=== PATIENT | male | born 1935 | race Caucasian/White ===

== ENCOUNTER 2016-07-28 19:58 | Inpatient (IN) | payer OTHER, MEDICARE ==
[~2016-07-28] VITALS: Ht 180.3 cm; Wt 68.0 kg
[~2016-07-28 19:58] MED LIST: ASPIRIN EC325 M2 PO; ATENOLOL25 MG PO; LEADER MELATONIN5 MG PO; LIPITOR20 M2 PO; MULTIVITAMIN1 TAB PO; NITROSTAT0.4 MG SL; PLETAL50 MG PO; PREDNISONE5 M1 PO; PREDNISONE5 MG PO; PROTONIX 40MG T40 MG PO; SEROQUEL 25MG25 MG PO; SEROQUEL50 M1 PO; SPECTAZOLE0.1 %/15 G TOP; STERAPRED DS10 MG PO; SYNTHROID0.088 MG PO; ZOLOFT 100 MG100 MG PO
--- NOTE | 2016-07-28 20:13 | NUR ---
81 YEAR OLD BIBA FROM ECF C/O N/V/D X1 DAY. PT DENIES CP, SOB AT THIS TIME. REPORTS GENERAL MALAISE, NAUSEA AND DIARRHEA.
--- NOTE | 2016-07-28 20:17 | ED GI/GU/ABDOMINAL COMPLAINT ---
History of Present Illness General Chief Complaint: Nausea, Vomiting, Diarrhea Stated Complaint: BIBA FOR DIARRHEA AND VOMITING Source: patient, old records, EMS Exam Limitations: no limitations Vital Signs & Intake/Output Vital Signs & Intake/Output Vital Signs Date Time Temp Pulse Resp B/P Pulse O2 O2 Flow FiO2 Ox Delivery Rate 07/28 2215 101.0 96 18 130/66 95 07/287 101.0 07/28 2010 101.0 90 22 105/59 95 Room Air Room Air Allergies Coded Allergies: Iodinated Contrast Media - Oral and (Severe, CARDIAC ARREST 07/28/16) Reconcile Medications Acetaminophen (Tylenol Extra Strength) 500 MG TABLET 1 TAB PO Q4P PRN FEVER/ PAIN (Reported) Albuterol Sulfate (Ventolin Hfa) 90 MCG HFA.AER.AD 2 PUF INH Q4-6 PRN PRN SOB (Reported) Aspirin (Ecotrin*) 325 MG TABLET.DR 325 MG PO DAILY CARDIAC (Reported) Atenolol 25 MG TAB 1 TAB PO DAILY htn (Reported) Atorvastatin Calcium (Lipitor) 20 MG TABLET 20 MG PO QHS HPL (Reported) Cilostazol (Pletal) 50 MG TAB 1 TAB PO DAILY VASODILATOR (Reported) Econazole (Spectazole 0.1% (15GM)) 0.1 %/15 GM CRM 1 MIGUEL TOP DAILY TINEA ( Reported) apply to affected area(s) Levothyroxine Sodium (Synthroid) 0.088 MG TAB 0.088 MG PO DAILY AC THYROID ( Reported) Melatonin 5 MG TAB 1 TAB PO QPM SLEEP (Reported) Multivitamin (Multiple Vitamins) 1 TAB TAB 1 TAB PO DAILY MULTIVITAMIN ( Reported) Nitroglycerin (Nitrostat) 0.4 MG TAB 1 TAB SL Q5MIN PRN CHEST PAIN (Reported) Pantoprazole Sodium (Protonix) 40 MG TAB 40 MG PO DAILY ACID REFLUX (Reported ) Prednisone 5 MG TABLET 5 MG PO DAILY COPD (Reported) Quetiapine Fumarate (Seroquel) 50 MG TABLET 50 MG PO AT BEDTIME DEPRESSION ( Reported) Sertraline (Zoloft 100 MG Tab) 100 MG TAB 1 TAB PO DAILY DEPRESSION (Reported ) Triage Note: 81 YEAR OLD BIBA FROM [facility] C/O N/V/D X1 DAY. PT DENIES CP, SOB AT THIS TIME. REPORTS GENERAL MALAISE, NAUSEA AND DIARRHEA. Triage Nurses Notes Reviewed? yes HPI: Impression brought in from assisted living for nausea vomiting diarrhea which started yesterday evening. Patient states that this afternoon he was sitting on the commode and when he went to stand up he lost his balance and fell forward. Patient says that he did not pass out either prior to or after the episode. Patient denies any abdominal pain. The patient was admitted in May for similar complaints when he was found to be in acute renal failure, pancreatitis. Both of those resolved after IV fluids. At that point patient is also had a syncopal episode so was admitted to telemetry service and was ruled out for a cardiac event. Patient denies any chest pain or shortness of breath. He denies any palpitations. Patient denies any blood in his vomitus or his stool. Past History Travel History Traveled to [place] past 21 day No Medical History Any Pertinent Medical History? see below for history Neurological: CVA (residual right hemiparesis) EENT: cataracts Cardiovascular: CAD, hypertension, hyperlipidemia, myocardial infarction, PVD, pericarditis Respiratory: COPD Gastrointestinal: GERD, BARRETTS ESOPHAGUS Renal: CKD Musculoskeletal: osteoarthritis, osteoporosis, POLYNYALGIA RHEUMATICA polyangiitis Psychiatric: anxiety, depression Endocrine: hypothyroidism Blood Disorders: anemia History of MRSA: No History of VRE: No History of CDIFF: No Pneumonia Vaccine: 05/06/06 Influenza Vaccine: 04/11/15 Surgical History Surgical History: CABG, status post left carotid endarterectomy coronary stenting Psychosocial History Who do you live with Spouse What is your primary language Eritrean Tobacco Use: Never used ETOH Use: denies use Illicit Drug Use: denies illicit drug use Family History Hx Contributory? No Review of Systems Review of Systems Constitutional: Reports: see HPI, chills, weakness. EENTM: Reports: no symptoms. Respiratory: Reports: no symptoms. Cardiovascular: Reports: no symptoms. GI: Reports: see HPI, diarrhea, nausea, vomiting. Genitourinary: Reports: no symptoms. Musculoskeletal: Reports: no symptoms. Skin: Reports: no symptoms. Neurological/Psychological: Reports: no symptoms. Hematologic/Endocrine: Reports: no symptoms. Immunologic/Allergic: Reports: no symptoms. All Other Systems: Reviewed and Negative Physical Exam Physical Exam General Appearance: well developed/nourished, alert, awake, anxious, moderate distress Head: SUPERFICIAL LACERATION TO LOWER LIP. dOES NOT REQUIRE SUTURES. Eyes: Bilateral: PERRL, EOMI. Ears, Nose, Throat, Mouth: DRY MUCOSA. nO DENTAL INJURY. Neck: normal inspection, supple, full range of motion, no midline tenderness Respiratory: normal breath sounds, chest non-tender, no respiratory distress, lungs clear Cardiovascular: regular rate/rhythm, normal peripheral pulses Gastrointestinal: normal bowel sounds, soft, non-tender, no organomegaly, NO REBOUND OR GUARDING Back: normal inspection, normal range of motion, no vertebral tenderness Extremities: normal range of motion Neurologic/Psych: no motor/sensory deficits, awake, alert, oriented x 3, normal mood/affect Skin: intact, normal color, warm/dry Core Measures ACS in differential dx? No Severe Sepsis Present: No Septic Shock Present: No Progress Differential Diagnosis: bowel obstruction, diverticulitis, ischemic bowel, inflamm bowel dis, pancreatitis, SBO Plan of Care: Orders Procedure Date/time Status Clear Liquid Diet 07/29 B Active Intake & Output 07/28 2207 Active Saline Lock 07/28 2205 Active Misc Message 07/28 2205 Active ED Holding Orders 07/28 2205 Active Patient Data 07/28 2205 Active Vital Signs 07/28 2205 Active CIWA 07/28 2205 Active Code Status 07/28 2205 Active Admit to inpatient 07/28 2147 Active BLOOD CULTURE 07/28 2134 Active URINALYSIS 07/28 2134 Complete TROPONIN LEVEL 07/28 2015 Complete LIPASE 07/28 2015 Complete COMPREHENSIVE METABOLIC PANEL 07/28 2015 Complete CBC WITHOUT DIFFERENTIAL 07/28 2015 Complete AMYLASE 07/28 2015 Complete EKG 07/28 2015 Active Current Medications Sig/Beatrice Start time Last Medication Dose Stop Time Status Admin Sodium Chloride 1,000 ML .Q8H 07/28 2214 AC (Normal Saline 0.9%) Laboratory Tests 07/28/162145: Urine Color YEL, Urine Clarity CLEAR, Urine pH 6.0, Ur Specific [place] 1.025, Urine Protein NEG, Urine Ketones NEG, Urine Nitrite NEG, Urine Bilirubin NEG, Urine Urobilinogen 0.2, Ur Leukocyte Esterase NEG, Ur Microscopic EXAM NOT REQUIRED, Urine Hemoglobin NEG, Urine Glucose NEG 07/28/162036: Anion Gap 13, Estimated GFR 32 L, BUN/Creatinine Ratio 17.5, Glucose 114 H, Calcium 8.8, Total Bilirubin 0.8, AST 26, ALT 30, Alkaline Phosphatase 82, Troponin I < 0.01, Total Protein 7.8, Albumin 4.1, Globulin 3.7, Albumin/ Globulin Ratio 1.1, Amylase 328 H, Lipase 3040 H, CBC w Diff NO MAN DIFF REQ, RBC 4.61 L, MCV 97.0 H, MCH 32.5 H, RDW 14.3, MPV 8.6, Gran % 93.4 H, Lymphocytes % 2.0 L, Monocytes % 4.1, Eosinophils % 0.4, Basophils % 0.1, Absolute Granulocytes 12.8 H, Absolute Lymphocytes 0.3 L, Absolute Monocytes 0.6, Absolute Eosinophils 0.1, Absolute Basophils 0, PUBS MCHC 33.5 Microbiology 07/28 2203 BLOOD: Blood Culture - RECD 07/28 2145 BLOOD: Blood Culture - RECD Diagnostic Imaging: Viewed by Me: Radiology Read. Discussed w/RAD: Radiology Read. CXR Impression: PATIENT: OREN FENG PRESENT AGE: 81 PATIENT ACCOUNT NO: [id number] : 35 LOCATION: [facility] ORDERING PHYSICIAN: OREN JAUREGUI MD SERVICE DATE: 07/28/16 EXAM TYPE: RAD - XRY- PORTABLE CHEST XRAY EXAMINATION: XR PORTABLE CHEST CLINICAL INFORMATION: Cough and fever COMPARISON: Chest x-ray 06/16/2015 CT chest 07/11/2015. TECHNIQUE: Portable AP portable view of the chest was obtained. FINDINGS: Lung volume low. Status post median sternotomy for CABG. Increased lung markings consistent with interstitial lung disease as seen on CT study. There is no dense consolidation. No pulmonary vascular congestion. No pleural effusion. IMPRESSION: Status post CABG. Interstitial lung disease. No acute change of the chest. DICTATED BY: NICK POOLE MD DATE/TIME DICTATED:07/28/162204 PURCHASING SPECIALIST:BECCA DATE/TIME TRANSCRIBED:07/28/162204 CONFIDENTIAL, DO NOT COPY WITHOUT APPROPRIATE AUTHORIZATION. <Electronically signed in Other Vendor System> SIGNED BY: NICK POOLE MD 07/28/162215 Initial ED EKG: NSR, nonspecific ST T wave chg Prior EKG: unchanged Rhythm Strip: normal sinus rhythm Comments: CT SCAN REVIEWED FROM 06/08/16 Departure Departure Disposition: STILL A PATIENT Condition: Guarded Clinical Impression Primary Impression: Acute renal injury Secondary Impressions: Pancreatitis Referrals: DIA HYDE,J LUIS Tolliver (PCP/Family) Departure Forms: Customer Survey General Discharge Information Admission Note Spoke With: TREVIN HAGER MD Documentation of Exam: Documentation of any treatments & extenuating circumstances including Concerns Regarding Discharge (functional status, medication knowledge or non-compliance, living conditions, etc.) that warrant an admission rather than observation: [IV HYDRATION, GASTROENTEROLOGY CONSULT, RENAL CONSULT]
--- NOTE | 2016-07-28 20:40 | NUR ---
PT MEDICATED WITH ZOFRAN PER ORDER
--- NOTE | 2016-07-28 20:40 | NUR ---
BLOOD DRAWN AND SENT TO LAB SST, LAV, BLUE, CHAN, PINK
[2016-07-28 20:43] LABS: ABSOLUTE BASOPHIL COUNT 0 /CUMM (0.0-0.2); ABSOLUTE EOSINOPHIL COUNT 0.1 /CUMM (0.0-0.7); ABSOLUTE GRANULOCYTE CT 12.8 /CUMM (1.4-6.5); ABSOLUTE LYMPH COUNT 0.3 /CUMM (1.2-3.4); ABSOLUTE MONOCYTE COUNT 0.6 /CUMM (0.10-0.60); BASOPHIL % 0.1 % (0.0-2.0); EOSINOPHIL % 0.4 % (0-5); HEMATOCRIT 44.7 % (42-52); MEAN CORPUSCULAR HGB 32.5 PG (27.0-31.0); MEAN CORPUSCULAR HGB CONC 33.5 G/DL (33.0-37.0); MEAN PLATELET VOLUME 8.6 FL (7.4-10.4); PLATELET COUNT 183 /CUMM (130-400); RBC DISTRIBUTION WIDTH 14.3 % (11.5-14.5); RED BLOOD CELL CT 4.61 /CUMM (4.70-6.10); WHITE BLOOD CELL COUNT 13.7 /CUMM (4.8-10.8)
[2016-07-28 20:45] LABS: GRANULOCYTE % 93.4 % (42.2-75.2)
--- NOTE | 2016-07-28 22:07 | NUR ---
PT REPORTS NAUSEA DECREASING AFTER BEING MEDICATED
--- NOTE | 2016-07-28 22:09 | NUR ---
URINE TRIO SENT
--- NOTE | 2016-07-28 22:16 | RADIOLOGY REPORT ---
EXAMINATION: XR PORTABLE CHEST CLINICAL INFORMATION: Cough and fever COMPARISON: Chest x-ray 06/16/2015 CT chest 07/11/2015. TECHNIQUE: Portable AP portable view of the chest was obtained. FINDINGS: Lung volume low. Status post median sternotomy for CABG. Increased lung markings consistent with interstitial lung disease as seen on CT study. There is no dense consolidation. No pulmonary vascular congestion. No pleural effusion. IMPRESSION: Status post CABG. Interstitial lung disease. No acute change of the chest.
--- NOTE | 2016-07-28 22:43 | NUR ---
Emergency Dept UC Admit Note: To be admitted to [facility] by DR HAGER with PANCREATITIS/ ACUTE KIDNEY INJURY as the diagnosis, to GEN MED/ ROOM 212-01 location. Nursing Shingle Grader and admitting notified 07/28/16 at [id number]
[2016-07-28] MEDS ORDERED: TYLENOL EXTRA500 M2 PO (22:55)
[2016-07-28] MEDS ORDERED: VENTOLIN HFA18 GM INH (22:56)
--- NOTE | 2016-07-28 23:30 | NUR ---
PT APPEARS COMFORTABLE. RESP UNLABORED. NO APPARENT DISTRESS. DENIES PAIN
--- NOTE | 2016-07-28 23:31 | History & Physical ---
LUIS HYDE,[facility] 07/28/16 2331: General Information and HPI MD Statement: I have seen and personally examined OREN FENG and documented this H&P. The patient is a 81 year old M who presented with a patient stated chief complaint of [nausea/vomiting]. Source of Information: patient Exam Limitations: no limitations History of Present Illness: Patient is a 81-year-old gentleman who is brought in from [facility] due to sudden onset nausea and vomiting since 3 PM today. Reports low appetite in the morning, had some egg and cheese with Brazilian muffin, it was around 3 PM that he felt slightly nauseous and threw up in the commode; when he got up he felt dizzy and lost consciousness, he woke up realizing that his hand was in the commode and that he had hurt his lower lip on the left side. Reports vomiting couple of times again afterwards. Vomitus contained food that he had in the breakfast, and nonbloody. Patient denies any abdominal pain, denies fever but reports chills, reports loose stools but not diarrhea. He did not have any chest pain, palpitations, diaphoresis or shortness of breath. Denies headache and head trauma. Does not report any changes in the urine, or dysuria. Patient reports that he once had similar symptoms as a reaction to malt vinegar but he denies having taken it recently. Patient also has GERD and takes pantoprazole. Allergies/Medications Allergies: Coded Allergies: Iodinated Contrast Media - Oral and (Severe, CARDIAC ARREST 07/28/16) Home Med list Acetaminophen (Tylenol Extra Strength) 500 MG TABLET 1 TAB PO Q4P PRN FEVER/ PAIN (Reported) Albuterol Sulfate (Ventolin Hfa) 90 MCG HFA.AER.AD 2 PUF INH Q4-6 PRN PRN SOB (Reported) Aspirin (Ecotrin*) 325 MG TABLET.DR 325 MG PO DAILY CARDIAC (Reported) Atenolol 25 MG TAB 1 TAB PO DAILY htn (Reported) Atorvastatin Calcium (Lipitor) 20 MG TABLET 20 MG PO QHS HPL (Reported) Cilostazol (Pletal) 50 MG TAB 1 TAB PO DAILY VASODILATOR (Reported) Econazole (Spectazole 0.1% (15GM)) 0.1 %/15 GM CRM 1 MIGUEL TOP DAILY TINEA ( Reported) apply to affected area(s) Levothyroxine Sodium (Synthroid) 0.088 MG TAB 0.088 MG PO DAILY AC THYROID ( Reported) Melatonin 5 MG TAB 1 TAB PO QPM SLEEP (Reported) Multivitamin (Multiple Vitamins) 1 TAB TAB 1 TAB PO DAILY MULTIVITAMIN ( Reported) Nitroglycerin (Nitrostat) 0.4 MG TAB 1 TAB SL Q5MIN PRN CHEST PAIN (Reported) Pantoprazole Sodium (Protonix) 40 MG TAB 40 MG PO DAILY ACID REFLUX (Reported ) Prednisone 5 MG TABLET 1 TAB PO DAILY Polymyalgia rheumatica (Reported) Quetiapine Fumarate (Seroquel) 50 MG TABLET 50 MG PO AT BEDTIME DEPRESSION ( Reported) Sertraline (Zoloft 100 MG Tab) 100 MG TAB 1 TAB PO DAILY DEPRESSION (Reported ) Past History Travel History Traveled to [place] past 21 day No Medical History Neurological: CVA (residual right hemiparesis), there is impaired fine motor skills on the right hand, status post left carotid endarterectomy EENT: cataracts Cardiovascular: CAD, hypertension, hyperlipidemia, myocardial infarction, PVD, pericarditis Respiratory: COPD Gastrointestinal: GERD, BARRETTS ESOPHAGUS Renal: CKD Musculoskeletal: osteoarthritis, osteoporosis, POLYNYALGIA RHEUMATICA polyangiitis Psychiatric: anxiety, depression Endocrine: hypothyroidism Blood Disorders: anemia History of MRSA: No History of VRE: No History of CDIFF: No Surgical History Surgical History: CABG, status post left carotid endarterectomy coronary stenting Past Family/Social History Psychosocial History ETOH Use: denies use Illicit Drug Use: denies illicit drug use Functional Ability ADLs Independent: dressing, eating, toileting, bathing. Ambulation: cane Review of Systems Review of Systems Constitutional: Reports: chills, weakness (generalized weakness). Denies: fever. EENTM: Reports: double vision (chronic). Cardiovascular: Reports: syncope (vasovagal). Denies: chest pain, edema, orthopena, palpitations, peripheral edema. Respiratory: Denies: cough, short of breath, sputum production. GI: Reports: nausea, vomiting. Denies: abdominal pain, diarrhea, changes in stool. Genitourinary: Reports: no symptoms. Musculoskeletal: Reports: no symptoms. Skin: Reports: no symptoms. Neurological/Psychological: Reports: headache (mild headache). Hematologic/Endocrine: Denies: bruising, bleeding, polyuria, polydipsia. Exam & Diagnostic Data Last 24 Hrs of Vital Signs/I&O Vital Signs Date Time Temp Pulse Resp B/P Pulse O2 O2 Flow FiO2 Ox Delivery Rate 07/29 0008 98.1 90 20 100/60 93 Room Air 07/28 2331 100.6 89 18 138/74 96 07/28 2216 101.0 96 18 130/66 95 07/28 2207 101.0 07/28 2010 101.0 90 22 105/59 95 Room Air Room Air Intake & Output 07/29 0800 07/29 0000 07/28 1600 Intake Total 1000 Output Total Balance 1000 Intake, IV 1000 Patient 68.039 kg Weight Physical Exam General Appearance Alert, Oriented X3, Cooperative, No Acute Distress Skin No Rashes, No Breakdown, No Significant Lesion, dry mucous membranes HEENT Atraumatic, PERRLA, EOMI Neck Supple, No JVD Lymphatic no cervical lymphadenopathy Cardiovascular Regular Rate, Normal S1, Normal S2, 4/6 systolic murmur maximum at the apex Lungs Normal Air Movement, bibasilar crackles most prominent on the right side Abdomen Normal Bowel Sounds, Soft, No Tenderness Neurological Normal Speech, Strength at 5/5 X4 Ext, Normal Tone, Sensation Intact, Cranial Nerves 3-12 NL Extremities No Clubbing, No Cyanosis, No Edema, Normal Pulses, No Tenderness/ Swelling Vascular Normal Pulses, Pulses Symmetrical Last 24 Hrs of Labs/Yossi: Laboratory Tests 07/28/162145: Urine Color YEL, Urine Clarity CLEAR, Urine pH 6.0, Ur Specific [place] 1.025, Urine Protein NEG, Urine Ketones NEG, Urine Nitrite NEG, Urine Bilirubin NEG, Urine Urobilinogen 0.2, Ur Leukocyte Esterase NEG, Ur Microscopic EXAM NOT REQUIRED, Urine Hemoglobin NEG, Urine Glucose NEG 07/28/162036: Anion Gap 13, Estimated GFR 32 L, BUN/Creatinine Ratio 17.5, Glucose 114 H, Calcium 8.8, Total Bilirubin 0.8, AST 26, ALT 30, Alkaline Phosphatase 82, Troponin I < 0.01, Total Protein 7.8, Albumin 4.1, Globulin 3.7, Albumin/ Globulin Ratio 1.1, Amylase 328 H, Lipase 3040 H, CBC w Diff NO MAN DIFF REQ, RBC 4.61 L, MCV 97.0 H, MCH 32.5 H, RDW 14.3, MPV 8.6, Gran % 93.4 H, Lymphocytes % 2.0 L, Monocytes % 4.1, Eosinophils % 0.4, Basophils % 0.1, Absolute Granulocytes 12.8 H, Absolute Lymphocytes 0.3 L, Absolute Monocytes 0.6, Absolute Eosinophils 0.1, Absolute Basophils 0, PUBS MCHC 33.5 Microbiology 07/28 2203 BLOOD: Blood Culture - RECD 07/28 2145 BLOOD: Blood Culture - RECD Assessment/Plan Assessment: Patient is an 81-year-old male with past medical history of CAD s/p CABG, hypertension, hyperlipidemia, GERD with Garza esophagus, microscopic polyangiitis rheumatica, hypothyroidism, anxiety, depression and anemia, last admitted in [place] in May 2015 with nausea/vomiting, diarrhea and syncope. He is brought in due to sudden onset nausea and vomiting and episode of loss of consciousness. Patient was found to be febrile with leukocytosis with elevated pancreatic enzymes in the ED. He also has elevated BUN and creatinine. Patient is admitted for pancreatitis and acute kidney injury. Problems and plan: Acute gastroenteritis Nausea vomiting in the setting of elevated pancreatic enzymes * Nothing by mouth * IV fluids * Zofran 4 mg every 6 when necessary * IV pantoprazole Episode of LOC after vomiting possible due to hypotension * Rule out ACS by serial troponin and EKG * Check orthostats ANDREAS on CKD possibly due to dehydration * Continue IV fluids * Check BEP in the morning * avoid NSAIDs and other nephrotoxins History of GERD * Pantoprazole 40 mg daily History of CAD, hypertension, hyperlipidemia, PVD, CVA * Continue atenolol 25 mg daily * Continue aspirin 325 mg daily * Continue atorvastatin 20 mg daily * Continue cilostazol 50 mg daily Hypothyroidism * Continue 0.088 mg daily * Check TSH and T4 Anxiety and depression * Continue sertraline 100 mg daily * Continue quetiapine 50 mg at bedtime DVT prophylaxis * Subcutaneous heparin Diet * Nothing by mouth CODE STATUS * DNR/DNI As Ranked By This Provider Problem List: 1. Acid reflux 2. Chronic kidney disease 3. Dehydration 4. Nausea and vomiting 5. Pancreatitis 6. Acute renal injury 7. Dehydration Core Measures/Miscellaneous Acute Coronary Syndrome ACS Diagnosis: No Cerebrovascular Accident CVA/TIA Diagnosis: No Congestive Heart Failure CHF Diagnosis: No Venous Thromboembolism VTE Risk Factors: Acute medical illness, Age > 40 VTE Prophylaxis Ordered Inpt: [facility] d/t: No contraindications No VTE Pharm Prophylaxis d/t: No contraindications VTE Diagnosis: No VTE Type: NONE VTE Confirmed by (Test): NONE Severe Sepsis Severe Sepsis Present: No Septic Shock Septic Shock Present: No Miscellaneous Documentation Attending Case Discussed With: MD TREVIN HAGER Primary Care Physician: J LUIS ALVARES MD Patient sees these Specialists Dr. Serna (rheumatalogy, patient has hx of microscopic polyangiitis) Level of Patient Care: General Medicine LUCIUS HYDE,YUKO 07/29/16 0010: Resident Review Statement Resident Statement: examined this patient, discussed with restaurant management internship, agreed with restaurant management internship, reviewed EMR data (avail), reviewed images, amended to note Other Findings: This is 81-year-old male with past medical history of critical dysfunction, CAD status post CABG, PVD, carotid artery disease status post left carotid endarterectomy, CVA with right residual fine motor weakness, HR ED, GERD, Garza's esophagus, anxiety, depression, polymyalgia rheumatica, hypothyroidism was brought in by ambulance from [facility] after patient had 3 episode of nonbloody vomiting with persistent nausea and an episode of syncope. Patient was fine up until this morning. He hurt his usual breakfast with cheese , eggs and mUffne. Today afternoon patient started feeling nauseous and had an episode of food containing nonbloody projectile vomiting around 3 PM. This episode followed by 2 other episode of projectile vomiting and 1 episode of loose BM. During first episode, he was sitting on comode, and he felt severe nausea. He got up and had projectile vomiting and became dizzy and fell with his small hitting on the edge of comode. He woke up in few seconds with his hand laying in comode. Patient had similar episode last time when he was admitted after having similar gastroenteritis symptoms and that time his cardiology workup was negative for any cardiac cause of syncope. Patient also reported that there are at least 18-[address] [facility] who were sick. He also reports being febrile and having chills with mild headache and generalized weakness and loss of appetite since morning. He denied any recent travel or any unusual food intake. He denies any chest pain, shortness of breath, dizziness, lightheadedness, further episode of vomiting, diarrhea, urinary burning/pain or any focal weakness. His vitals on admission were T max 101, HR 90, RR 20, BP 105/59, O2 sat 95% on room air On physical exam patient is alert oriented 3 in no distress, HEENT PERRLA EOMI, neck supple noted swelling on lower lip, heart S1-S2 with grade 4 systolic murmur, noted bibasilar crackles on lung exam, abdomen soft nondistended with mild epigastric tenderness with preserved fall sounds, no peripheral edema, no focal osteochondral deficit. Labs were significant for leukocytosis of 13,700 with left shift, H&H 15/44.7, normal electrolytes, BUN 35 and creatinine 2 (baseline creatinine 1.9 in January 2016), blood glucose 114, first set of troponin negative, normal LFT, amylase 328, lipase 3040. EKG revealed normal sinus rhythm at a rate of 86, unchanged T inversion in inferior wall and T-wave flattening in lateral leads which is new compared to previous EKG, QTC 388 Chest x-ray noted interstitial lung disease without any acute changes. Assessment: This is 81-year-old male with past medical history of CAD status post CABG, hypertension, hyperlipidemia, PVD, carotid artery disease status post left carotid endarterectomy, anxiety/depression, polymyalgia rheumatica was brought in from assisted living facility after patient had 3 episode of projectile vomiting with nausea, low-grade fever and 1 loose bowel movement and an episode of syncope. Most likely etiology of patient's GI symptoms likely acute gastroenteritis resulting in dehydration which might have causeD vasovagal syncope. 1. Acute gastroenteritis with elevated lipase Patient reported multiple assisted living facility restaurants being sick, had acute onset nausea vomiting and an episode of loose BM with mild epigastric discomfort likely suggestive of acute viral gastroenteritis. Elevated lipase could be related with projectile vomiting. If patient continues to report abdominal discomfort and would consider imaging including CT abdomen and pelvis or right upper quadrant ultrasound to rule out any CBD disease. Patient has no history of gallstone disease. - Keep nothing by mouth - IV PPI - Anti-emetics for nausea vomiting - IV normal saline at 1 50 mL per hour -Advance diet as tolerated 2. Vasovagal syncope Patient lost consciousness for preferred period of time after he had an episode of projectile vomiting. Patient had similar episode during previous admission and that time CARDIAC workup noted negative. Considering patient's persistent nausea and vomiting and the symptoms of dizziness and loss of consciousness just after having projectile vomiting all suggest patient might had vagal episode with vomiting and in setting of dehydration he lost consciousness. - Rule out underlying ACS with serial troponin - Continue IV fluid hydration - Check orthostatic blood pressure in a.m. 3. Stage III CKD Most recent renal function done in April 2016 revealed creatinine of 1.9 ? His new baseline. In the process kidney function always remain around 1.3. - Continue IV gentle fluid hydration - Avoid nephrotoxic agent - Recheck renal function in a.m. 4. History of CAD, hypertension - Continue aspirin, atenolol and statin 5. PVD - Continue cilostazol and aspirin 6. Anxiety/depression Continue Seroquel and Zoloft 7. DVT prophylaxis - Subcutaneous heparin 8. DNR/DNI ALLEY HYDE, [facility] 07/29/16 0518: Attending MD Review Statement Attending Statement Attending MD Statement: examined this patient, discuss w/resident/PA/HELP DESK REPRESENTATIVE, agreed w/resident/PA/HELP DESK REPRESENTATIVE Attending Assessment/Plan: 81 yo M with from [facility], h/o microscopic polyangitis on prednisone, CAD s/p stent and CABG, CKD stage 3B, GERD, is here for evaluation of intractable nausea, vomiting and diarrhea, and syncopal episode. Chills+. He reports that other members at the [facility] living were also having similar symptoms over the past few days. He ate estonian muffin, egg and cheese for breakfast, does not remember what he had for supper. He was last admitted with similar symptoms (May 2015) diagnosed with gastroenteritis, subsequently complicated by bronchopneumonia and possible pancreatitis. Vitals: Tmax 101, borderline BP, sats 93% RA. Exam: dry mucous membranes, bruises noted to lip 2/2 fall. Chest bibasilar crackles++. Heart S1S2 regular, tachy, systolic murmur+, Abdomen: soft, NT, BS+. Extremities no edema. Labs: WBC 13.7, bicarb 21, BUN 35, creat 2.0 (baseline 1.3-1.5), trop neg, Lipase 3040, UA clear. CXR: neg. EKG: SR with T-wave flattening lead V4-6. Echo (2014): EF > 55%. 1. Intractable nausea, vomiting and diarrhea, likely gastroenteritis. He has an elevated lipase, but denies epigastric pain ?unclear etiology ?pancreatitis. Stool studies, Cdiff if persistent diarrhea. NPO, IV fluids, advance diet as tolerated, anti-emetics, IV PPI. If symptoms persist, consider CT abd/pelvis. If hypotensive, check serum cortisol and give stress dose steroids, as patient is on chronic prednisone therapy. 2. Syncope most likely vasovagal episode. Monitor for now, serial EKG and troponin, check orthostats. Continue IV fluids. 3. Acute on CKD stage 3B with metabolic acidosis. Gentle hydration, monitor renal functions. 4. SIRS (fever, leukocytosis) likely in setting of gastroenteritis/ ? pancreatitis. CXR and UA are negative. Monitor off antibiotics. DVT ppx Hep SC. DNR/I
[2016-07-29 00:08] VITALS: BP 100/60
--- NOTE | 2016-07-29 05:19 | Admission Certification ---
Admission Certification Certification Statement - As attending physician, I certify that at the time of - admission, based on clinical presentation, severity of - symptoms, need for further diagnostic testing and - therapeutic interventions, and risk of adverse outcomes - without in-hospital treatment, in my clinical assessment, - this patient requires an acute hospital stay for a minimum - of two nights or longer. I have also considered psychsocial - factors such as support system, advanced age, financial - issues, cognitive issues, and failed out-patient treatments, - past re-admission history, safety of patient, and lack of - compliance as applicable. Specific rationale supporting this admission is: Intractable nausea, vomiting possible gastroenteritis, syncopal episode with acute on chronic renal failure.
[2016-07-29] MEDS ORDERED: PREDNISONE5 M1 PO (05:54)
--- NOTE | 2016-07-29 07:36 | PN- Housestaff ---
JACOB HYDE,ZACHARY 07/29/16 0735: Subjective Follow-up For: Acute gastroenteritis Subjective: Patient seen and examined. He is seen lying flat in bed resting comfortably. He appears to be in no acute distress. He reports tolerated his breakfast of a full liquid diet well and reports that he would like to leave as he is "feeling better". He denies any further nausea, vomiting, or abdomenal pain. Additionally he denies any headache, fever, chills, chest pain, shortness of breath, palpitations, diarrhea. No overnight events reported. Review of Systems Constitutional: Reports: see HPI. Objective Last 24 Hrs of Vital Signs/I&O Vital Signs Date Time Temp Pulse Resp B/P Pulse O2 O2 Flow FiO2 Ox Delivery Rate 07/29 08 98.8 78 20 100/50 94 Room Air 07/29 0008 98.1 90 20 100/60 93 Room Air 07/28 2331 100.6 89 18 138/74 96 07/28 2215 101.0 96 18 130/66 95 07/287 101.0 07/28 2010 101.0 90 22 105/59 95 Room Air Room Air Intake & Output 07/29 1600 07/29 0800 07/29 0000 Intake Total 1000 Output Total 300 Balance -300 1000 Intake, IV 1000 Output, Urine 300 Patient 68.039 kg Weight Physical Exam General Appearance: Alert, Oriented X3, Cooperative Other Physical Findings: General - well developed, well nourished thin elderly man in no acute distress HEENT - NCAT, PERRL, EOMI, anicteric sclera, MMM, swollen left side of lip CVS/Chest - S1, S2 w/o m/g/r, mild lower right sided chest wall tenderness Resp - CTA bilaterally GI - soft, nontender, nondistended, bowel sounds present Neuro - Awake and alert, CN II - XII Ext - 2+ dsital pulses, no lower extremity edema Current Medications: Current Medications Sig/Beatrice Start time Last Medication Dose Route Stop Time Status Admin Acetaminophen 0 .STK-MED ONE 07/28 2204 DC IV Acetaminophen 1,000 MG ONCE ONE 07/28 2199 DC 07/28 N/A 1 UNIT IV 07/28 Aspirin Buffered 325 MG DAILY 07/29 1000 AC 07/29 PO 0858 Atenolol 25 MG DAILY 07/29 1000 AC PO Atorvastatin Calcium 20 MG AT BEDTIME 07/28 2345 AC PO Cilostazol 50 MG DAILY AC 07/29 0700 AC 07/29 PO 0550 Heparin Sodium 5,000 UNIT Q8 07/28 2334 AC (Porcine) SC Levothyroxine Sodium 0.088 MG DAILY AC 07/29 0700 AC 07/29 PO 0549 Melatonin 5 MG QPM 07/29 0045 AC PO Ondansetron HCl 4 MG Q6P PRN 07/28 2345 AC IV Ondansetron HCl 4 MG ONCE ONE 07/28 2014 DC 07/28 IV 07/28 Pantoprazole Sodium 40 MG DAILY 07/29 1000 AC 07/29 IV 0754 Prednisone 5 MG DAILY 07/29 1000 AC 07/29 PO 0858 Quetiapine Fumarate 50 MG AT BEDTIME 07/29 004 AC PO Sertraline HCl 100 MG DAILY 07/29 1000 AC 07/29 PO 0859 Sodium Chloride 1,000 ML Q6H 07/28 2345 AC IV Sodium Chloride 1,000 ML .Q8H 07/28 2215 DC IV Sodium Chloride 1,000 ML BOLUS ONE 07/28 2144 DC 07/28 IV 07/28 2243 2210 Sodium Chloride 1,000 ML BOLUS ONE 07/28 2029 DC 07/28 IV 07/28 Last 24 Hrs of Lab/Yossi Results Last 24 Hrs of Labs/Mics: Laboratory Tests 07/29/16 0615: Troponin I Cancelled 07/29/16 0615: Anion Gap 10, Estimated GFR 36 L, BUN/Creatinine Ratio 18.3, Troponin I 0.01, Lipase 261, CBC w Diff NO MAN DIFF REQ, RBC 4.01 L, MCV 96.8 H, MCH 33.0 H, RDW 14.2, MPV 9.0, Gran % 88.3 H, Lymphocytes % 3.5 L, Monocytes % 7.7, Eosinophils % 0.3, Basophils % 0.2, Absolute Granulocytes 8.4 H, Absolute Lymphocytes 0.3 L, Absolute Monocytes 0.7 H, Absolute Eosinophils 0, Absolute Basophils 0, PUBS MCHC 34.1 07/28/162145: Urine Color YEL, Urine Clarity CLEAR, Urine pH 6.0, Ur Specific [place] 1.025, Urine Protein NEG, Urine Ketones NEG, Urine Nitrite NEG, Urine Bilirubin NEG, Urine Urobilinogen 0.2, Ur Leukocyte Esterase NEG, Ur Microscopic EXAM NOT REQUIRED, Urine Hemoglobin NEG, Urine Glucose NEG 07/28/162036: Anion Gap 13, Estimated GFR 32 L, BUN/Creatinine Ratio 17.5, Glucose 114 H, Calcium 8.8, Total Bilirubin 0.8, AST 26, ALT 30, Alkaline Phosphatase 82, Troponin I < 0.01, Total Protein 7.8, Albumin 4.1, Globulin 3.7, Albumin/ Globulin Ratio 1.1, Amylase 328 H, Lipase 3040 H, CBC w Diff NO MAN DIFF REQ, RBC 4.61 L, MCV 97.0 H, MCH 32.5 H, RDW 14.3, MPV 8.6, Gran % 93.4 H, Lymphocytes % 2.0 L, Monocytes % 4.1, Eosinophils % 0.4, Basophils % 0.1, Absolute Granulocytes 12.8 H, Absolute Lymphocytes 0.3 L, Absolute Monocytes 0.6, Absolute Eosinophils 0.1, Absolute Basophils 0, PUBS MCHC 33.5 Microbiology 07/28 2203 BLOOD: Blood Culture - RES 07/28 2145 BLOOD: Blood Culture - RES Assessment/Plan Assessment: Patient denies any further nausea, vomiting, or abdomenal pain despite an elevated lipase and an initial clinical presentation highly suggestive of acute pancreatitis. Patient was started on intravenous fluid, antiemetics and trialed on a full liquid diet. This morning he reports feeling much better and would like to be discharged. He tolerated a heart healthy diet for lunch and is declining any further intravenous fluids. He is to be discharged this evening as he has dramatically improved much faster than anticipated. Acute Gastroenteritis with elevated Lipase: History of GERD with Barretts Esophagus. Admitted for evaluation of nausea/ vomiting/adomenal pain. Lipase elevated to 3040 on admission. Patient was given 4 liters of intravenous normal saline in the ED. Lipase this morning was markedly reduced. -IVF refused by patient on medicine floor -Advanced to heart healthy diet -Zofran 4mg Q6H PRN Nausea -Protonix 40mg IV Daily Diet - Full liquid diet advanced to heart healthy diet DVT PPx - Heparin Code Status - DNR/DNI Problem List: 1. Gastroenteritis Pain Ratin Pain Location: Abdomen Pain Goal: Remain pain free Pain Plan: As noted in plan Tomorrow's Labs & Rationales: None CARMEN QUINN MD 07/29/16 1202: Attending MD Review Statement Attending Statement Attending MD Statement: examined this patient, discuss w/resident/PA/TELEGRAPHIC TYPEWRITER MECHANIC, agreed w/resident/PA/TELEGRAPHIC TYPEWRITER MECHANIC, reviewed EMR data (avail) Attending Assessment/Plan: 81M PMH HTN, HLD, CKD stage 3, polymyalgia rheumatica, peripheral arterial disease admitted for intractable nausea and vomiting with dehydration and near syncope secondary to acute gastroenteritis. Patient is completely improved today. He is awake, alert, looks well, says he feels great, as compared to yesterday when he felt violently ill. He ate breakfast this morning and denies nausea, vomiting, diarrhea, or abdominal pain. Afebrile, normal BP, creatinine back to his baseline. 1. Acute gastroenteritis 2. Dehydration 3. Acute on chronic kidney injury 4. CKD stage 3 Plan - Will advance to regular diet, if tolerated well, considering patient's extremely rapid improvement, can be discharge back to assisted living in the afternoon - Continue all home medications - DVT PPx
[2016-07-29 08:11] LABS: ABSOLUTE BASOPHIL COUNT 0 /CUMM (0.0-0.2); ABSOLUTE EOSINOPHIL COUNT 0 /CUMM (0.0-0.7); ABSOLUTE LYMPH COUNT 0.3 /CUMM (1.2-3.4)
[2016-07-29 08:35] LABS: ABSOLUTE GRANULOCYTE CT 8.4 /CUMM (1.4-6.5); ABSOLUTE MONOCYTE COUNT 0.7 /CUMM (0.10-0.60); BASOPHIL % 0.2 % (0.0-2.0); EOSINOPHIL % 0.3 % (0-5); MEAN CORPUSCULAR HGB CONC 34.1 G/DL (33.0-37.0); MEAN CORPUSCULAR VOLUME 96.8 FL (80.0-94.0); PLATELET COUNT 150 /CUMM (130-400); RBC DISTRIBUTION WIDTH 14.2 % (11.5-14.5); RED BLOOD CELL CT 4.01 /CUMM (4.70-6.10); WHITE BLOOD CELL COUNT 9.5 /CUMM (4.8-10.8)
[2016-07-29 08:36] VITALS: BP 100/50
[2016-07-29 08:39] LABS: HEMATOCRIT 38.8 % (42-52)
[2016-07-29 09:07] LABS: GRANULOCYTE % 88.3 % (42.2-75.2)
--- NOTE | 2016-07-29 13:50 | Patient Discharge Instructions ---
Discharge Instructions General Discharge Information Special Instructions: Follow up with your primary care provider after discharge. Follow a diet of light foods should your symptoms return. Be sure to drink plenty of fluids such as sports drinks or pedialyte. Acute Coronary Syndrome Inclusion Criteria At DC or during hospital stay patient has or had the following: ACS DIAGNOSIS No Discharge Core Measures Meds if any: Prescribed or Continued at Discharge Meds if any: NOT Prescribed or Continued at Discharge Congestive Heart Failure Inclusion Criteria At DC or during hospital stay patient has or had the following: CHF DIAGNOSIS No Discharge Core Measures Meds if any: Prescribed or Continued at Discharge Meds if any: NOT Prescribed or Continued at Discharge Cerebrovascular accident Inclusion Criteria At DC or during hospital stay patient has or had the following: CVA/TIA Diagnosis No Discharge Core Measures Meds if any: Prescribed or Continued at Discharge Meds if any: NOT Prescribed or Continued at Discharge Venous thromboembolism Inclusion Criteria VTE Diagnosis No VTE Type NONE VTE Confirmed by (Test) NONE Discharge Core Measures - Per Current guidelines, there needs to be overlap - treatment for the first 5 days of Warfarin therapy. - If discharged on Warfarin prior to 5 days of - overlap therapy, the patient will need to be - assessed for post discharge needs including - *Post discharge parental anticoagulation - *Warfarin and/or parental anticoagulation education - *Follow up date to check INR post discharge At least 5 days overlap therapy as Inpatient No Meds if any: Prescribed or Continued at Discharge Note: Overlap Therapy is Warfarin and Anticoagulant Meds if any: NOT Prescribed or Continued at Discharge
--- NOTE | 2016-07-29 18:33 | Discharge Summary ---
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 Patient was fine up until this morning. He hurt his usual breakfast with cheese , eggs and mUffne. Today afternoon patient started feeling nauseous and had an episode of food containing nonbloody projectile vomiting around 3 PM. This episode followed by 2 other episode of projectile vomiting and 1 episode of loose BM. During first episode, he was sitting on comode, and he felt severe nausea. He got up and had projectile vomiting and became dizzy and fell with his small hitting on the edge of comode. He woke up in few seconds with his hand laying in comode. Patient had similar episode last time when he was admitted after having similar gastroenteritis symptoms and that time his cardiology workup was negative for any cardiac cause of syncope. Patient also reported that there are at least 18-20 resident's at [facility] who were sick. He also reports being febrile and having chills with mild headache and generalized weakness and loss of appetite since morning. He denied any recent travel or any unusual food intake. He denies any chest pain, shortness of breath, dizziness, lightheadedness, further episode of vomiting, diarrhea, urinary burning/pain or any focal weakness. Acute Gastroenteritis with elevated Lipase: History of GERD with Barretts Esophagus. Admitted for evaluation of nausea/ vomiting/adomenal pain. Lipase elevated to 3040 on admission. Patient was given 4 liters of intravenous normal saline in the ED. Lipase this morning was markedly reduced. He was started on intravenous zofran for nausea relief and Protonix. Patient denied any further abdominal pain/nausea/vomiting on the day after admission and was refusing intravenous fluids. He request a full meal for which his clear liquid diet was advanced to a hearth healthy diet which he tolerated well. Patient recovered much faster than anticipated and was requesting to be discharged to home. Allergies: Coded Allergies: Iodinated Contrast Media - Oral and (Severe, CARDIAC ARREST 07/28/16) Significant Procedures: SERVICE DATE: 07/28/16 EXAM TYPE: RAD - XRY-PORTABLE CHEST XRAY IMPRESSION: Status post CABG. Interstitial lung disease. No acute change of the chest. Disposition Summary Disposition Principal Diagnosis: Acute gastroenteritis with elevated lipase Additional Diagnosis: CKD stage 3 Discharge Disposition: home or self care Discharge Instructions General Discharge Information Code Status: Do Not Resucitate/Intubat Patient's Diet: Heart healthy diet Patient's Activity: Return to full activity as tolerated Follow-Up Instructions/Appts: Follow up with your primary care provider after discharge. Follow a diet of light foods should your symptoms return. Be sure to drink plenty of fluids such as sports drinks or pedialyte. Medications at Discharge Discharge Medications: Continue taking these medications: Aspirin (Ecotrin*) 325 MG TABLET. 325 Milligram ORAL DAILY Comments: Last Taken:07/29/16 Time:9 AM Atenolol (Atenolol) 25 MG TAB 1 Tablet ORAL DAILY Comments: NOT GIVEN IN HOSPITAL Atorvastatin Calcium (Lipitor) 20 MG TABLET 20 Milligram ORAL TAKE AT BEDTIME Comments: NOT GIVEN IN HOSPITAL Cilostazol (Pletal) 50 MG TAB 1 Tablet ORAL DAILY Comments: NOT GIVEN IN HOSPITAL Levothyroxine Sodium (Synthroid) 0.088 MG TAB 0.088 Milligram ORAL DAILY BEFORE BREAKFAST Comments: Last Taken: 06/18/15 Time: 5:40 AM Multivitamin (Multiple Vitamins) 1 TAB TAB 1 Tablet ORAL DAILY Comments: NOT GIVEN IN HOSPITAL Pantoprazole Sodium (Protonix) 40 MG TAB 40 Milligram ORAL DAILY Comments: NOT GIVEN IN HOSPITAL PRILOSEC GIVEN Last Taken: 06/18/15 Time: 5:40 AM Sertraline (Zoloft 100 MG Tab) 100 MG TAB 1 Tablet ORAL DAILY Comments: Last Taken: 06/18/15 Time: 10:00 AM Melatonin (Melatonin) 5 MG TAB 1 Tablet ORAL Every night Comments: Last Taken: 06/17/15 Time: 9:30 PM Nitroglycerin (Nitrostat) 0.4 MG TAB 1 Tablet SUBLINGUAL Q5MIN as needed for CHEST PAIN Comments: NOT GIVEN IN HOSPITAL Econazole (Spectazole 0.1% (15GM)) 0.1 %/15 GM CRM 1 Application On the skin DAILY Instructions: apply to affected area(s) Comments: NOT GIVEN IN HOSPITAL Quetiapine Fumarate (Seroquel) 50 MG TABLET 50 Milligram ORAL AT BEDTIME Comments: NOT GIVEN Acetaminophen (Tylenol Extra Strength) 500 MG TABLET 1 Tablet ORAL EVERY 4 HOURS NEEDED as needed for FEVER/PAIN Comments: IV TYLENOL GIVEN IN HOSPITAL Last Taken:07/28/16 Time:10 PM Albuterol Sulfate (Ventolin Hfa) 90 MCG HFA.AER.AD 2 Puff Inhale through mouth EVERY 4-6 HOURS NEEDED as needed for SOB Comments: NOT GIVEN Prednisone (Prednisone) 5 MG TABLET 1 Tablet ORAL DAILY Comments: Last Taken:07/29/16 Time:9 AM Copies To: DIA HYDE,J LUIS Tolliver
== END 2016-07-29 15:00 | DRG 392 ==
LOC: ENRESERVTM → ENRESERVDT → ERH 19:58 → ERHI 21:48 → ENPENDDIS 21:48 → 2NB 21:48
PROVIDERS: Emergency Medicine; Internal Medicine; ADMIT Student in an Organized Health Care Education/Training Program
DX: K52.9 Noninfective gastroenteritis and colitis, unspecified (principal); N17.9 Acute kidney failure, unspecified; E87.2 Acidosis; E86.0 Dehydration; N18.3 Chronic kidney disease, stage 3 (moderate); I12.9 Hypertensive chronic kidney disease with stage 1 through stage 4 chronic kidney disease, or unspecified chronic kidney disease; K21.9 Gastro-esophageal reflux disease without esophagitis; K22.70 Barrett's esophagus without dysplasia; E78.5 Hyperlipidemia, unspecified; M35.3 Polymyalgia rheumatica; I73.9 Peripheral vascular disease, unspecified
CPT/HCPCS: ERO; 81003; 82436; 87040; 93005; 93010; 96361; 96374; J0131; J1644; J7512